=== PATIENT | female | born 1985 | race Two or more races ===

== ENCOUNTER 2020-06-11 21:54 | Inpatient (IN) | payer SELFPAY ==
[~2020-06-11] VITALS: Ht 160 cm; Wt 88.3 kg
[2020-06-11 23:41] LABS: Urine Bacteria NONE SEEN /hpf (None Seen); Urine Blood Negative /uL (Negative); Urine Mucus FEW (None Seen); Urine Specific Gravity 1.018 (1.001-1.035); Urine WBC 10 /hpf (0 - 5)
[2020-06-12 00:13] LABS: Basophils # (auto) 0.1 10 ^3/uL (0-0.2); Basophils % (auto) 0.6 % (0.0-2.0); Eosinophils # (auto) 0.2 10 ^3/uL (0-0.8); Hemoglobin 12.3 g/dL (12.2-16.2); Monocytes # (auto) 0.5 10 ^3/uL (0-1.3); White Blood Cell 9.3 10^3/uL (4.4-10.8)
[2020-06-12 00:15] LABS: Eosinophils % (auto) 2.4 % (0.0-7.0); Hematocrit 39.6 % (36.0-46.0); Lymphocytes # (auto) 2.2 10 ^3/uL (0.4-5.4); Lymphocytes % (auto) 23.5 % (10.0-50.0); Mean Corpuscular Hgb Conc. 31.2 g/dL (32.0-36.0); Mean Corpuscular Volume 83.5 fL (80.0-100.0); Monocytes % (auto) 5.8 % (0.0-12.0); Neutrophils # (auto) 6.3 10 ^3/uL (1.6-8.6); Neutrophils % (auto) 67.7 % (37.0-80.0); Platelet Count (auto) 253 10^3/uL (140-450); Red Blood Cells 4.74 10^6/uL (4.0-5.20); Red Cell Distribution Width 15.7 % (11.8-14.3)
[2020-06-12 00:39] LABS: Albumin 3.5 g/dL (3.4-5.0); BUN/Creatinine Ratio 9.6; Calcium 9.8 mg/dL (8.5-10.1); Magnesium 1.9 mg/dL (1.6-2.6); Potassium 3.5 mmol/L (3.5-5.1)
[2020-06-12 00:42] LABS: Bilirubin, Total 0.3 mg/dL (0.2-1.0); Total Protein 7.1 g/dL (6.4-8.2)
[2020-06-12] MEDS ORDERED: metroNIDAZOLE 500MG/100ML 100 ML IV ONE (01:15)
[2020-06-12] MEDS ORDERED: SODIUM CHLORIDE 0.9% 1,000 ML IV ONE (01:15)
[2020-06-12] MEDS ORDERED: cefTRIAXone 1GM/50ML D5W 50 ML IV ONE (01:15)
[2020-06-12] MEDS ORDERED: MORPHINE SULFATE 4 MG/ML SYR/VIAL IV ONE (02:00)
[2020-06-12] MEDS ORDERED: ONDANSETRON HCL 4 MG/2 ML VIAL IV ONE (02:00)
[2020-06-12 02:19] LABS: INR 1.02 (0.9-1.15); Partial Thromboplastin Time 27.5 sec (23.0-31.2)
[2020-06-12 05:10] VITALS: BP 126/53
[2020-06-12 05:27] VITALS: BP 126/53
[2020-06-12] MEDS: D5W/SOD CHLO 0.9% 1,000 ML IV SCH ×2 (05:31→16:07)
[2020-06-12] MEDS: ONDANSETRON HCL 4 MG/2 ML VIAL IV PRN ×2 (06:25→12:21)
[2020-06-12] MEDS: MORPHINE SULFATE 4 MG/ML SYR/VIAL IV PRN ×4 (06:26→20:33)
[2020-06-12 08:51] VITALS: BP 102/68
[2020-06-12] MEDS: PANTOPRAZOLE 40 MG/10 ML VIAL INJ IV SCH (09:25)
[2020-06-12] MEDS: metroNIDAZOLE 500MG/100ML 100 ML IV SCH ×2 (12:11→18:23)
[2020-06-12] MEDS ORDERED: MEPERIDINE HCL (25 MG/ML) 1ML VIAL ONE (12:19)
[2020-06-12] MEDS ORDERED: PROPOFOL 10 MG/ML 20 ML IV ONE (12:20)
[2020-06-12] MEDS ORDERED: SODIUM CHLORIDE LOCK 10 ML ONE (12:20)
[2020-06-12] MEDS ORDERED: ONDANSETRON HCL 4 MG/2 ML VIAL ONE (12:20)
[2020-06-12] MEDS ORDERED: ROCURONIUM 10MG/ML 10ML VIAL IV ONE (12:20)
[2020-06-12] MEDS ORDERED: MIDAZOLAM HCL 1MG/1ML-2 ML VIAL ONE (12:20)
[2020-06-12] MEDS ORDERED: fentaNYL CITRATE 100 MCG/2 ML VL ONE ×2 (12:20→14:38)
[2020-06-12 12:30] VITALS: BP 102/68
[2020-06-12] MEDS ORDERED: BUPIVACAINE 0.25% INJ 50ML VIAL ONE (13:16)
[2020-06-12] MEDS ORDERED: LIDOCAINE 1% HCL (LOCAL ANESTH.) INJ 20ML MDV ONE (13:16)
[2020-06-12] MEDS ORDERED: SUCCINYLCHOLINE CHLORIDE 20 MG/ML 10ML VIAL IV ONE (13:47)
[2020-06-12] MEDS ORDERED: ceFAZolin 1GM/50ML 50 ML IV ONE (13:55)
[2020-06-12] MEDS ORDERED: GLYCOPYRROLATE 0.2 MG/ML 1ML VIAL ONE (14:21)
[2020-06-12] MEDS ORDERED: NEOSTIGMINE 1 MG/ML INJ (10mg/10ML VIAL) ONE (14:21)
[2020-06-12] MEDS ORDERED: DexAMETHasone SOD PHOS 10MG/1ML VIAL INJ ONE (14:34)
[2020-06-12] MEDS ORDERED: KETOROLAC TROMETH 30 MG/ML 1ML VIAL IV ONE (15:15)
[2020-06-12] MEDS ORDERED: MORPHINE SULFATE 4 MG/ML SYR/VIAL IV PRN (15:15)
[2020-06-12] MEDS ORDERED: HYDROmorphone HCL 2 MG/ML VL IV PRN (15:15)
[2020-06-12] MEDS ORDERED: METOCLOPRAMIDE HCL 5MG/ml INJ 2ml VIAL IV PRN (15:15)
[2020-06-12 16:11] VITALS: BP 122/76
[2020-06-12 21:48] VITALS: BP 104/70
[2020-06-13] MEDS: MORPHINE SULFATE 4 MG/ML SYR/VIAL IV PRN ×5 (01:01→19:41)
[2020-06-13] MEDS: cefTRIAXone 1GM/50ML D5W 50 ML IV SCH (02:06)
[2020-06-13] MEDS: metroNIDAZOLE 500MG/100ML 100 ML IV SCH ×3 (02:56→18:40)
[2020-06-13 05:24] VITALS: BP 110/59
[2020-06-13 05:57] LABS: Basophils # (auto) 0 10 ^3/uL (0-0.2); Basophils % (auto) 0.1 % (0.0-2.0); Eosinophils # (auto) 0 10 ^3/uL (0-0.8); Hematocrit 37.9 % (36.0-46.0); Hemoglobin 12.3 g/dL (12.2-16.2); Lymphocytes # (auto) 0.9 10 ^3/uL (0.4-5.4); Lymphocytes % (auto) 9.2 % (10.0-50.0); Mean Corpuscular Hemoglobin 27.3 pg (28.0-32.0); Mean Corpuscular Hgb Conc. 32.5 g/dL (32.0-36.0); Mean Corpuscular Volume 83.9 fL (80.0-100.0); Monocytes # (auto) 0.3 10 ^3/uL (0-1.3); Monocytes % (auto) 3.5 % (0.0-12.0); Neutrophils # (auto) 8.5 10 ^3/uL (1.6-8.6); Neutrophils % (auto) 87.2 % (37.0-80.0); Platelet Count (auto) 297 10^3/uL (140-450); Red Blood Cells 4.52 10^6/uL (4.0-5.20); Red Cell Distribution Width 15.5 % (11.8-14.3); White Blood Cell 9.7 10^3/uL (4.4-10.8)
[2020-06-13 06:11] LABS: Potassium 3.9 mmol/L (3.5-5.1)
[2020-06-13 06:15] LABS: Albumin 3.1 g/dL (3.4-5.0); Calcium 8.7 mg/dL (8.5-10.1)
[2020-06-13 06:18] LABS: Bilirubin, Total 0.2 mg/dL (0.2-1.0); Total Protein 6.8 g/dL (6.4-8.2)
[2020-06-13 08:49] VITALS: BP 110/69
[2020-06-13] MEDS: PANTOPRAZOLE 40 MG/10 ML VIAL INJ IV SCH (09:15)
[2020-06-13 13:00] VITALS: BP 109/62
[2020-06-13 16:58] VITALS: BP 105/77
[2020-06-13] MEDS: D5W/SOD CHLO 0.9% 1,000 ML IV SCH (18:40)
[2020-06-13 22:00] VITALS: BP 120/79
[2020-06-14] MEDS: cefTRIAXone 1GM/50ML D5W 50 ML IV SCH (02:05)
[2020-06-14] MEDS: MORPHINE SULFATE 4 MG/ML SYR/VIAL IV PRN ×2 (02:05→08:24)
[2020-06-14] MEDS: metroNIDAZOLE 500MG/100ML 100 ML IV SCH ×2 (03:04→08:25)
[2020-06-14 05:00] VITALS: BP 110/67
[2020-06-14 08:00] VITALS: BP 121/70
[2020-06-14] MEDS: PANTOPRAZOLE 40 MG/10 ML VIAL INJ IV SCH (08:25)
[2020-06-14 09:08] VITALS: BP 121/70
[2020-06-14 11:13] VITALS: BP 121/71
== END 2020-06-14 12:34 | disposition home or self-care (01) | DRG 340 ==
LOC: ER 21:54 → OVERFLOW 21:55 → CENTRAL 06-12 05:07
PROVIDERS: ADMIT Nurse Practitioner; ATTEND Family Medicine
PROC: 0DTJ4ZZ Resection of Appendix, Percutaneous Endoscopic Approach (ICD-10-PCS; principal; 2020-06-12 13:57)
DX: K35.33 Acute appendicitis with perforation, localized peritonitis, and gangrene, with abscess (principal); Z20.828 Contact with and (suspected) exposure to other viral communicable diseases
CPT/HCPCS: 36415; 74176; 80053; 81001; 81025; 82150; 83690; 83735; 84702; 85025; 85610; 85730; 86850; 86900; 86901; 87426; 96365; 96367; 96375; C9113; G0378; J0330; J0690; J0696; J1100; J2001; J2250; J2405; J2704; J3490; J7042

== ENCOUNTER 2020-11-19 12:41 | Inpatient (IN) | payer BC, OTHER ==
[~2020-11-19] VITALS: Ht 160 cm; Wt 74.3 kg
[2020-11-19 13:13] LABS: Basophils # (auto) 0 10 ^3/uL (0-0.2); Basophils % (auto) 0.6 % (0.0-2.0); Eosinophils # (auto) 0.1 10 ^3/uL (0-0.8); Eosinophils % (auto) 1.9 % (0.0-7.0); Hemoglobin 13.7 g/dL (12.2-16.2); Lymphocytes # (auto) 2.2 10 ^3/uL (0.4-5.4); Lymphocytes % (auto) 28.4 % (10.0-50.0); Mean Corpuscular Hemoglobin 28.7 pg (28.0-32.0); Mean Corpuscular Hgb Conc. 34.1 g/dL (32.0-36.0); Mean Corpuscular Volume 84.1 fL (80.0-100.0); Monocytes # (auto) 0.4 10 ^3/uL (0-1.3); Monocytes % (auto) 5.1 % (0.0-12.0); Neutrophils # (auto) 4.9 10 ^3/uL (1.6-8.6); Nucleated Red Blood Cells % 0.1 %; Platelet Count (auto) 279 10^3/uL (140-450); Red Blood Cells 4.76 10^6/uL (4.0-5.20); Red Cell Distribution Width 14.7 % (11.8-14.3); White Blood Cell 7.6 10^3/uL (4.4-10.8)
[2020-11-19 13:20] LABS: Urine Bacteria FEW /hpf (None Seen); Urine Blood Negative /uL (Negative); Urine Specific Gravity 1.002 (1.001-1.035); Urine WBC 3 /hpf (0 - 5)
[2020-11-19 13:30] LABS: Albumin 3.8 g/dL (3.4-5.0); Potassium 3.2 mmol/L (3.5-5.1)
[2020-11-19 13:34] LABS: BUN/Creatinine Ratio 10.6; Bilirubin, Total 0.3 mg/dL (0.2-1.0); Total Protein 7.8 g/dL (6.4-8.2)
[2020-11-19] MEDS ORDERED: SODIUM CHLORIDE 0.9% 1,000 ML IVB ONE (14:15)
[2020-11-19 15:25] LABS: INR 1.02 (0.9-1.15); Partial Thromboplastin Time 29.5 sec (23.0-31.2)
[2020-11-19] MEDS ORDERED: MORPHINE SULF INJ 2 MG/ML SYRINGE 1ML IV PRN ×2 (17:30→17:45)
[2020-11-19] MEDS ORDERED: NITROGLYCERIN 0.4 MG SL TAB SL PRN ×2 (17:30→17:45)
[2020-11-19] MEDS ORDERED: ALUM & MAG HYDROX-SIMETH LIQ(MAALOX) 30 ML PO PRN (17:45)
[2020-11-19] MEDS ORDERED: HYDROcodone-ACET 5/325MG TAB PO PRN (17:45)
[2020-11-19] MEDS ORDERED: DOCUSATE SOD 100 MG CAP PO PRN (17:45)
[2020-11-19] MEDS ORDERED: LORazepam 0.5 MG TAB PO PRN (17:45)
[2020-11-19] MEDS ORDERED: PANTOPRAZOLE 40 MG/10 ML VIAL INJ IV ONE (17:45)
[2020-11-19] MEDS ORDERED: cefTRIAXone 1GM/50ML D5W 50 ML IV ONE (17:45)
[2020-11-19] MEDS ORDERED: metroNIDAZOLE 500MG/100ML 100 ML IV ONE (17:45)
[2020-11-19] MEDS ORDERED: SODIUM CHLORIDE 0.9% 1,000 ML IV SCH (17:45)
[2020-11-19] MEDS ORDERED: POTASSIUM CHL 20MEQ/100ML 100 ML IV ONE (17:45)
[2020-11-19] MEDS ORDERED: ACETAMINOPHEN 325 MG TAB PO PRN (17:45)
[2020-11-19] MEDS ORDERED: POTASSIUM EFFERVESENT TAB 25 MEQ PO ONE (18:30)
[2020-11-19] MEDS: ONDANSETRON HCL 4 MG/2 ML VIAL IV PRN (18:51)
[2020-11-19] MEDS: MORPHINE SULF INJ 2 MG/ML SYRINGE 1ML IV PRN (18:51)
[2020-11-19 19:06] LABS: Cholesterol 172 mg/dL (< 200); HDL Cholesterol 56 mg/dL (40-59); LDL Cholesterol 105 mg/dL (< 100); Triglycerides 93 mg/dL (< 150)
[2020-11-20] MEDS: metroNIDAZOLE 500MG/100ML 100 ML IV SCH ×3 (00:50→15:47)
[2020-11-20 05:00] VITALS: BP 94/50
[2020-11-20] MEDS: MORPHINE SULF INJ 2 MG/ML SYRINGE 1ML IV PRN ×2 (05:29→21:29)
[2020-11-20 09:00] VITALS: BP 108/56
[2020-11-20 09:16] LABS: Alcohol, Urine < 3.0 mg/dL (0-10); Amphetamine Screen, Urine POSITIVE (NEGATIVE); Barbiturate Scree,Urine NEGATIVE (NEGATIVE); Benzodiazephine Screen, Urine NEGATIVE (NEGATIVE); Cannabinoid Screen, Urine NEGATIVE (NEGATIVE); Cocaine Screen, Urine NEGATIVE (NEGATIVE); Phencyclidine Screen, Urine NEGATIVE (NEGATIVE)
[2020-11-20 09:24] LABS: Opiate Scree,Urine NEGATIVE (NEGATIVE)
[2020-11-20] MEDS: cefTRIAXone 1GM/50ML D5W 50 ML IV SCH (09:25)
[2020-11-20] MEDS ORDERED: PANTOPRAZOLE 40 MG/10 ML VIAL INJ IV SCH (10:00)
[2020-11-20] MEDS ORDERED: GOLYTELY 4L KIT PO ONE (11:45)
[2020-11-20 13:00] VITALS: BP 92/58
[2020-11-20] MEDS: LACTATED RINGER'S 1,000 ML IV SCH ×2 (13:35→18:25)
[2020-11-20] MEDS: ONDANSETRON HCL 4 MG/2 ML VIAL IV PRN (15:48)
[2020-11-20 17:00] VITALS: BP 112/72
[2020-11-20 22:07] VITALS: BP 108/73
[2020-11-21] MEDS: LACTATED RINGER'S 1,000 ML IV SCH ×3 (00:52→20:41)
[2020-11-21 05:33] VITALS: BP 94/60
[2020-11-21] MEDS: metroNIDAZOLE 500MG/100ML 100 ML IV SCH ×3 (06:20→21:44)
[2020-11-21] MEDS: cefTRIAXone 1GM/50ML D5W 50 ML IV SCH ×2 (06:28→09:02)
[2020-11-21 07:04] LABS: Basophils # (auto) 0.1 10 ^3/uL (0-0.2); Basophils % (auto) 1.2 % (0.0-2.0); Eosinophils # (auto) 0.2 10 ^3/uL (0-0.8); Hematocrit 33.5 % (36.0-46.0); Hemoglobin 11.2 g/dL (12.2-16.2); Lymphocytes # (auto) 1.4 10 ^3/uL (0.4-5.4); Lymphocytes % (auto) 31.3 % (10.0-50.0); Mean Corpuscular Hemoglobin 28.2 pg (28.0-32.0); Mean Corpuscular Hgb Conc. 33.4 g/dL (32.0-36.0); Mean Corpuscular Volume 84.3 fL (80.0-100.0); Monocytes # (auto) 0.3 10 ^3/uL (0-1.3); Monocytes % (auto) 5.8 % (0.0-12.0); Neutrophils # (auto) 2.6 10 ^3/uL (1.6-8.6); Neutrophils % (auto) 57.7 % (37.0-80.0); Nucleated Red Blood Cells % 0.1 %; Platelet Count (auto) 214 10^3/uL (140-450); Red Blood Cells 3.97 10^6/uL (4.0-5.20); Red Cell Distribution Width 15.2 % (11.8-14.3); White Blood Cell 4.5 10^3/uL (4.4-10.8)
[2020-11-21 09:00] VITALS: BP 104/52
[2020-11-21] MEDS ORDERED: LIDOCAINE VISCOUS 2% 15ML UD ONE (10:45)
[2020-11-21] MEDS ORDERED: MEPERIDINE HCL (25 MG/ML) 1ML VIAL ONE (10:50)
[2020-11-21] MEDS ORDERED: MIDAZOLAM HCL 1MG/1ML-2 ML VIAL ONE (10:51)
[2020-11-21] MEDS ORDERED: DexAMETHasone SOD PHOS 10MG/1ML VIAL INJ ONE (11:01)
[2020-11-21] MEDS ORDERED: PROPOFOL 10 MG/ML 20 ML IV ONE (11:07)
[2020-11-21] MEDS ORDERED: ONDANSETRON HCL 4 MG/2 ML VIAL IV PRN (11:15)
[2020-11-21] MEDS ORDERED: MORPHINE SULFATE 4 MG/ML SYR/VIAL IV PRN (11:15)
[2020-11-21] MEDS ORDERED: ePHEDrine SULFATE 50 MG/ML AMP IV PRN (11:15)
[2020-11-21] MEDS ORDERED: HYDROmorphone HCL 2 MG/ML VL IV PRN (11:15)
[2020-11-21] MEDS ORDERED: MIDAZOLAM HCL 1MG/1ML-2 ML VIAL IV PRN (11:15)
[2020-11-21] MEDS ORDERED: LABETALOL HCL 5 MG/ML 4ML SYRINGE IV PRN (11:15)
[2020-11-21 13:00] VITALS: BP 108/62
[2020-11-21 17:00] VITALS: BP 107/56
[2020-11-21] MEDS: MORPHINE SULF INJ 2 MG/ML SYRINGE 1ML IV PRN (20:38)
[2020-11-21 22:00] VITALS: BP 103/54
[2020-11-22] MEDS: LACTATED RINGER'S 1,000 ML IV SCH ×2 (04:57→10:10)
[2020-11-22 05:00] VITALS: BP 111/57
[2020-11-22] MEDS: metroNIDAZOLE 500MG/100ML 100 ML IV SCH (06:06)
[2020-11-22] MEDS: cefTRIAXone 1GM/50ML D5W 50 ML IV SCH (08:43)
[2020-11-22 09:00] VITALS: BP 107/63
== END 2020-11-22 12:35 | disposition home or self-care (01) | DRG 394 ==
LOC: ER 12:41 → TELE 12:42 → TELE-CENTR 11-20 04:39
PROVIDERS: ADMIT Hospitalist; ATTEND Family Medicine
PROC: 0DJD8ZZ Inspection of Lower Intestinal Tract, Via Natural or Artificial Opening Endoscopic (ICD-10-PCS; principal; 2020-11-21 10:48)
PROC: 0DJ08ZZ Inspection of Upper Intestinal Tract, Via Natural or Artificial Opening Endoscopic (ICD-10-PCS; 2020-11-21 10:48)
DX: K64.8 Other hemorrhoids (principal); E87.1 Hypo-osmolality and hyponatremia; N17.9 Acute kidney failure, unspecified; N39.0 Urinary tract infection, site not specified; E78.5 Hyperlipidemia, unspecified; E86.0 Dehydration; E87.6 Hypokalemia; F17.210 Nicotine dependence, cigarettes, uncomplicated; K52.9 Noninfective gastroenteritis and colitis, unspecified; N18.2 Chronic kidney disease, stage 2 (mild); Z20.822 Contact with and (suspected) exposure to COVID-19; Z80.1 Family history of malignant neoplasm of trachea, bronchus and lung; Z80.3 Family history of malignant neoplasm of breast; Z82.49 Family history of ischemic heart disease and other diseases of the circulatory system; Z90.49 Acquired absence of other specified parts of digestive tract; K59.04 Chronic idiopathic constipation; F15.90 Other stimulant use, unspecified, uncomplicated
CPT/HCPCS: 36415; 70450; 71046; 74176; 80053; 80061; 80307; 81001; 82962; 83036; 83735; 84484; 84702; 85025; 85610; 85730; 86850; 86900; 86901; 87040; 87086; 87426; 93005; 93306; 96361; 96365; 96375; C9113; G0378; J0696; J1100; J2250; J2405; J2704; J3490

== ENCOUNTER 2021-03-09 19:29 | Emergency (ER) | payer BC ==
[~2021-03-09] VITALS: Ht 160 cm; Wt 70.3 kg
[2021-03-09 20:16] LABS: Basophils # (auto) 0.1 10 ^3/uL (0-0.2); Basophils % (auto) 0.9 % (0.0-2.0); Eosinophils # (auto) 0.2 10 ^3/uL (0-0.8); Eosinophils % (auto) 2.4 % (0.0-7.0); Hematocrit 35.1 % (36.0-46.0); Hemoglobin 11.6 g/dL (12.2-16.2); Lymphocytes # (auto) 2.7 10 ^3/uL (0.4-5.4); Lymphocytes % (auto) 34.1 % (10.0-50.0); Mean Corpuscular Hemoglobin 27.4 pg (28.0-32.0); Mean Corpuscular Hgb Conc. 32.9 g/dL (32.0-36.0); Mean Corpuscular Volume 83.1 fL (80.0-100.0); Monocytes # (auto) 0.4 10 ^3/uL (0-1.3); Neutrophils # (auto) 4.5 10 ^3/uL (1.6-8.6); Neutrophils % (auto) 57.6 % (37.0-80.0); Nucleated Red Blood Cells % 0.1 %; Red Blood Cells 4.23 10^6/uL (4.0-5.20); Red Cell Distribution Width 15.2 % (11.8-14.3); White Blood Cell 7.9 10^3/uL (4.4-10.8)
[2021-03-09 20:20] LABS: Urine Bacteria NONE SEEN /hpf (None Seen); Urine Blood 3+ /uL (Negative); Urine Specific Gravity 1.016 (1.001-1.035); Urine WBC <1 /hpf (0 - 5)
[2021-03-09 20:39] LABS: Albumin 3.4 g/dL (3.4-5.0); Calcium 8.5 mg/dL (8.5-10.1); Potassium 3.8 mmol/L (3.5-5.1)
[2021-03-09 20:44] LABS: BUN/Creatinine Ratio 7.1; Bilirubin, Total 0.2 mg/dL (0.2-1.0)
[2021-03-09] MEDS ORDERED: SODIUM CHLORIDE 0.9% 1,000 ML IV ONE (22:30)
[2021-03-09] MEDS ORDERED: HYDROCORTISONE ACET 25 MG RECTAL SUPP PR ONE (22:45)
[2021-03-09 23:15] VITALS: BP 125/74
[2021-03-10] MEDS ORDERED: ONDANSETRON ODT 4 MG TAB PO ONE (00:15)
== END 2021-03-10 00:39 | disposition home or self-care (01) ==
LOC: ER 19:30
DX: K64.8 Other hemorrhoids (principal); F17.210 Nicotine dependence, cigarettes, uncomplicated; Z90.49 Acquired absence of other specified parts of digestive tract
CPT/HCPCS: 36415; 74176; 80053; 81001; 83690; 84702; 85025; 96360; 99284; J7030; Q0162

== ENCOUNTER 2021-12-28 11:55 | Inpatient (IN) | payer BC ==
[~2021-12-28] VITALS: Ht 160 cm; Wt 81.5 kg
[2021-12-28] MEDS ORDERED: MORPHINE SULFATE 4 MG/ML SYR/VIAL IV ONE (12:15)
[2021-12-28] MEDS ORDERED: ONDANSETRON HCL 4 MG/2 ML VIAL IV ONE (12:15)
[2021-12-28] MEDS ORDERED: SODIUM CHLORIDE 0.9% 500 ML IVB ONE (12:15)
[2021-12-28 13:25] LABS: Basophils # (auto) 0.1 10 ^3/uL (0-0.2); Eosinophils # (auto) 0.2 10 ^3/uL (0-0.8); Eosinophils % (auto) 4.5 % (0.0-7.0); Hematocrit 35.3 % (36.0-46.0); Hemoglobin 11.7 g/dL (12.2-16.2); Lymphocytes # (auto) 1.7 10 ^3/uL (0.4-5.4); Lymphocytes % (auto) 34.1 % (10.0-50.0); Mean Corpuscular Hemoglobin 27.6 pg (28.0-32.0); Mean Corpuscular Hgb Conc. 33.1 g/dL (32.0-36.0); Mean Corpuscular Volume 83.3 fL (80.0-100.0); Monocytes # (auto) 0.2 10 ^3/uL (0-1.3); Monocytes % (auto) 4.7 % (0.0-12.0); Neutrophils # (auto) 2.8 10 ^3/uL (1.6-8.6); Neutrophils % (auto) 54.7 % (37.0-80.0); Nucleated Red Blood Cells % 0.1 %; Red Blood Cells 4.24 10^6/uL (4.0-5.20); Red Cell Distribution Width 15.1 % (11.8-14.3); White Blood Cell 5.1 10^3/uL (4.4-10.8)
[2021-12-28 13:37] LABS: Amylase 64 U/L (25-115); Lipase 99 U/L (73-393)
[2021-12-28 13:38] LABS: Albumin 3.3 g/dL (3.4-5.0); Calcium 8.8 mg/dL (8.5-10.1); Potassium 4.2 mmol/L (3.5-5.1)
[2021-12-28 13:43] LABS: BUN/Creatinine Ratio 10.8; Bilirubin, Total 0.2 mg/dL (0.2-1.0); Total Protein 6.9 g/dL (6.4-8.2)
[2021-12-28] MEDS ORDERED: PANTOPRAZOLE 40 MG/10 ML VIAL INJ IV ONE (14:15)
[2021-12-28] MEDS ORDERED: ONDANSETRON HCL 4 MG/2 ML VIAL IV PRN (15:00)
[2021-12-28] MEDS ORDERED: GOLYTELY 4L KIT PO ONE (16:00)
[2021-12-28 16:25] LABS: INR 0.99 (0.9-1.15)
[2021-12-28] MEDS: SODIUM CHLORIDE 0.9% 1,000 ML IV SCH (16:47)
[2021-12-28] MEDS: MORPHINE SULFATE 4 MG/ML SYR/VIAL IV PRN (18:00)
[2021-12-28] MEDS ORDERED: NICOTINE 14 MG/24HR TOPICAL PATCH TD ONE (20:00)
[2021-12-29] MEDS: SODIUM CHLORIDE 0.9% 1,000 ML IV SCH ×2 (01:00→11:00)
[2021-12-29 05:00] VITALS: BP 112/72
[2021-12-29 05:23] LABS: Basophils # (auto) 0.1 10 ^3/uL (0-0.2); Basophils % (auto) 1.2 % (0.0-2.0); Eosinophils # (auto) 0.2 10 ^3/uL (0-0.8); Eosinophils % (auto) 3.7 % (0.0-7.0); Hematocrit 32.4 % (36.0-46.0); Hemoglobin 10.8 g/dL (12.2-16.2); Lymphocytes # (auto) 1.7 10 ^3/uL (0.4-5.4); Lymphocytes % (auto) 33.9 % (10.0-50.0); Mean Corpuscular Hemoglobin 27.9 pg (28.0-32.0); Mean Corpuscular Hgb Conc. 33.3 g/dL (32.0-36.0); Mean Corpuscular Volume 83.7 fL (80.0-100.0); Monocytes # (auto) 0.3 10 ^3/uL (0-1.3); Monocytes % (auto) 6.2 % (0.0-12.0); Neutrophils # (auto) 2.7 10 ^3/uL (1.6-8.6); Red Blood Cells 3.87 10^6/uL (4.0-5.20); Red Cell Distribution Width 15.4 % (11.8-14.3)
[2021-12-29] MEDS: MORPHINE SULFATE 4 MG/ML SYR/VIAL IV PRN ×4 (05:24→21:32)
[2021-12-29 05:44] LABS: Albumin 2.8 g/dL (3.4-5.0); Calcium 8.2 mg/dL (8.5-10.1)
[2021-12-29 05:46] LABS: BUN/Creatinine Ratio 8.6
[2021-12-29 05:48] LABS: Bilirubin, Total 0.4 mg/dL (0.2-1.0); Total Protein 5.6 g/dL (6.4-8.2)
[2021-12-29] MEDS: NICOTINE 14 MG/24HR TOPICAL PATCH TD SCH (09:01)
[2021-12-29] MEDS: PANTOPRAZOLE 40 MG/10 ML VIAL INJ IV SCH (09:01)
[2021-12-29 13:11] LABS: Urine WBC None Seen /hpf (0 - 5)
[2021-12-29 13:17] LABS: Urine Bacteria NONE SEEN /hpf (None Seen); Urine Blood Negative /uL (Negative); Urine Specific Gravity 1.011 (1.001-1.035)
[2021-12-29] MEDS ORDERED: fentaNYL CITRATE 100 MCG/2 ML VL ONE (13:21)
[2021-12-29] MEDS ORDERED: MEPERIDINE HCL (25 MG/ML) 1ML VIAL ONE (13:21)
[2021-12-29] MEDS ORDERED: MIDAZOLAM HCL 2MG/2ML 2ml VIAL (1mg/ml) ONE (13:21)
[2021-12-29] MEDS ORDERED: DexAMETHasone SOD PHOS 10MG/1ML VIAL INJ ONE (13:29)
[2021-12-29] MEDS ORDERED: PROPOFOL 10 MG/ML 20 ML IV ONE (13:29)
[2021-12-29 13:32] LABS: Alcohol, Urine < 3.0 mg/dL (0-10); Amphetamine Screen, Urine NEGATIVE (NEGATIVE); Barbiturate Scree,Urine NEGATIVE (NEGATIVE); Benzodiazephine Screen, Urine NEGATIVE (NEGATIVE); Cannabinoid Screen, Urine POSITIVE (NEGATIVE); Cocaine Screen, Urine NEGATIVE (NEGATIVE); Opiate Scree,Urine POSITIVE (NEGATIVE); Phencyclidine Screen, Urine NEGATIVE (NEGATIVE)
[2021-12-29] MEDS ORDERED: HYDROmorphone HCL 2 MG/ML VL IV PRN (13:45)
[2021-12-29] MEDS ORDERED: MORPHINE SULFATE 4 MG/ML SYR/VIAL IV PRN (13:45)
[2021-12-29] MEDS ORDERED: ePHEDrine SULFATE 50 MG/ML AMP IV PRN (13:45)
[2021-12-29] MEDS ORDERED: MIDAZOLAM HCL 2MG/2ML 2ml VIAL (1mg/ml) IV PRN (13:45)
[2021-12-29] MEDS ORDERED: LABETALOL HCL 5 MG/ML 4ML SYRINGE IV PRN (13:45)
[2021-12-29] MEDS ORDERED: ONDANSETRON HCL 4 MG/2 ML VIAL IV PRN (13:45)
[2021-12-29] MEDS ORDERED: HYDROCORTISONE ACET 25 MG RECTAL SUPP PR PRN (14:00)
[2021-12-29 17:00] VITALS: BP 100/60
[2021-12-29 22:00] VITALS: BP 104/61
[2021-12-30] MEDS: SODIUM CHLORIDE 0.9% 1,000 ML IV SCH ×3 (04:41→09:14)
[2021-12-30 05:00] VITALS: BP 107/65
[2021-12-30] MEDS: MORPHINE SULFATE 4 MG/ML SYR/VIAL IV PRN ×2 (05:00→09:15)
[2021-12-30 05:43] LABS: Basophils # (auto) 0 10 ^3/uL (0-0.2); Basophils % (auto) 0.1 % (0.0-2.0); Eosinophils # (auto) 0 10 ^3/uL (0-0.8); Hematocrit 34.3 % (36.0-46.0); Hemoglobin 11.7 g/dL (12.2-16.2); Lymphocytes # (auto) 0.6 10 ^3/uL (0.4-5.4); Lymphocytes % (auto) 5.8 % (10.0-50.0); Mean Corpuscular Hemoglobin 28.4 pg (28.0-32.0); Mean Corpuscular Hgb Conc. 34.1 g/dL (32.0-36.0); Mean Corpuscular Volume 83.4 fL (80.0-100.0); Monocytes # (auto) 0.3 10 ^3/uL (0-1.3); Monocytes % (auto) 3.3 % (0.0-12.0); Neutrophils # (auto) 9.5 10 ^3/uL (1.6-8.6); Neutrophils % (auto) 90.8 % (37.0-80.0); Red Blood Cells 4.12 10^6/uL (4.0-5.20); Red Cell Distribution Width 14.9 % (11.8-14.3); White Blood Cell 10.5 10^3/uL (4.4-10.8)
[2021-12-30 05:54] LABS: Calcium 8.7 mg/dL (8.5-10.1); Magnesium 2.4 mg/dL (1.6-2.6); Potassium 3.5 mmol/L (3.5-5.1)
[2021-12-30 05:58] LABS: BUN/Creatinine Ratio 5.8
[2021-12-30 08:00] VITALS: BP 117/64
[2021-12-30] MEDS: PANTOPRAZOLE 40 MG/10 ML VIAL INJ IV SCH (09:14)
[2021-12-30] MEDS: NICOTINE 14 MG/24HR TOPICAL PATCH TD SCH (09:15)
[2021-12-30 12:00] VITALS: BP 111/72
[2021-12-30] MEDS ORDERED: POLYETHYLENE GLYCOL 17 GM PWDR PO ONE (15:30)
[2021-12-30 16:00] VITALS: BP 135/65
[2021-12-30] MEDS: ACETAMINOPHEN 325 MG TAB PO PRN (18:26)
[2021-12-30 22:00] VITALS: BP 106/69
[2021-12-31 05:00] VITALS: BP 120/76
[2021-12-31 09:00] VITALS: BP 116/81
[2021-12-31] MEDS: NICOTINE 14 MG/24HR TOPICAL PATCH TD SCH (10:00)
[2021-12-31] MEDS: PANTOPRAZOLE 40 MG/10 ML VIAL INJ IV SCH (10:04)
[2021-12-31] MEDS: ACETAMINOPHEN 325 MG TAB PO PRN (10:06)
[2021-12-31 13:00] VITALS: BP 117/69
[2021-12-31] MEDS: SODIUM CHLORIDE 0.9% 1,000 ML IV SCH (13:00)
== END 2021-12-31 17:20 | disposition home or self-care (01) | DRG 394 ==
LOC: ER 11:55 → OVERFLOW 14:47 → WEST WING 20:36
PROVIDERS: ADMIT Registered Nurse; ATTEND Internal Medicine
PROC: 0DBL8ZX Excision of Transverse Colon, Via Natural or Artificial Opening Endoscopic, Diagnostic (ICD-10-PCS; principal; 2021-12-29 13:24)
DX: K63.5 Polyp of colon (principal); K92.2 Gastrointestinal hemorrhage, unspecified; K42.9 Umbilical hernia without obstruction or gangrene; K64.8 Other hemorrhoids; F12.90 Cannabis use, unspecified, uncomplicated; Z20.822 Contact with and (suspected) exposure to COVID-19; F17.210 Nicotine dependence, cigarettes, uncomplicated; Z71.6 Tobacco abuse counseling; Z80.3 Family history of malignant neoplasm of breast; Z90.49 Acquired absence of other specified parts of digestive tract; Z80.1 Family history of malignant neoplasm of trachea, bronchus and lung
CPT/HCPCS: 36415; 74176; 80048; 80053; 80307; 81001; 82150; 83690; 83735; 84702; 85025; 85610; 96361; 96374; 96375; 96376; C9113; G0378; J1100; J2250; J2405; J2704

== ENCOUNTER 2022-07-13 16:09 | Emergency (ER) | payer SELFPAY ==
[~2022-07-13] VITALS: Ht 160 cm; Wt 77.2 kg
[2022-07-13] MEDS ORDERED: MECLIZINE HCL 25 MG TAB PO ONE (16:30)
[2022-07-13 16:50] LABS: Alcohol, Urine < 3.0 mg/dL (0-10); Amphetamine Screen, Urine NEGATIVE (NEGATIVE); Barbiturate Scree,Urine NEGATIVE (NEGATIVE); Benzodiazephine Screen, Urine NEGATIVE (NEGATIVE); Cannabinoid Screen, Urine NEGATIVE (NEGATIVE); Cocaine Screen, Urine NEGATIVE (NEGATIVE); Opiate Scree,Urine NEGATIVE (NEGATIVE); Phencyclidine Screen, Urine NEGATIVE (NEGATIVE)
[2022-07-13 17:00] LABS: Basophils # (auto) 0.1 10 ^3/uL (0-0.2); Basophils % (auto) 0.9 % (0.0-2.0); Eosinophils # (auto) 0.1 10 ^3/uL (0-0.8); Eosinophils % (auto) 1.3 % (0.0-7.0); Hematocrit 37.2 % (36.0-46.0); Hemoglobin 11.9 g/dL (12.2-16.2); Lymphocytes # (auto) 1.5 10 ^3/uL (0.4-5.4); Lymphocytes % (auto) 20.5 % (10.0-50.0); Mean Corpuscular Hemoglobin 26.7 pg (28.0-32.0); Mean Corpuscular Hgb Conc. 31.9 g/dL (32.0-36.0); Mean Corpuscular Volume 83.6 fL (80.0-100.0); Monocytes # (auto) 0.2 10 ^3/uL (0-1.3); Monocytes % (auto) 3.4 % (0.0-12.0); Neutrophils # (auto) 5.4 10 ^3/uL (1.6-8.6); Neutrophils % (auto) 73.9 % (37.0-80.0); Nucleated Red Blood Cells % 0.1 %; Red Blood Cells 4.45 10^6/uL (4.0-5.20); White Blood Cell 7.3 10^3/uL (4.4-10.8)
[2022-07-13 17:21] LABS: Albumin 3.6 g/dL (3.4-5.0); Calcium 8.8 mg/dL (8.5-10.1); Potassium 3.9 mmol/L (3.5-5.1)
[2022-07-13 17:24] LABS: BUN/Creatinine Ratio 9.3; Bilirubin, Total 0.2 mg/dL (0.2-1.0); Total Protein 6.9 g/dL (6.4-8.2)
[2022-07-13] MEDS ORDERED: MECL12.514 PO (19:04)
[2022-07-13 19:27] VITALS: BP 100/59
== END 2022-07-13 19:30 | disposition home or self-care (01) ==
LOC: ER 16:09
DX: R42 Dizziness and giddiness (principal); F17.210 Nicotine dependence, cigarettes, uncomplicated; F12.10 Cannabis abuse, uncomplicated; Z90.89 Acquired absence of other organs
CPT/HCPCS: 36415; 70450; 80053; 80307; 81025; 85025; 99284; J8597

== ENCOUNTER 2023-02-11 15:32 | Inpatient (IN) | payer SELFPAY ==
[~2023-02-11] VITALS: Ht 160 cm; Wt 77.4 kg
[~2023-02-11 15:32] MED LIST: MECL12.514 PO
[2023-02-11 16:12] LABS: Basophils # (auto) 0.1 10 ^3/uL (0-0.2); Basophils % (auto) 0.9 % (0.0-2.0); Eosinophils # (auto) 0.1 10 ^3/uL (0-0.8); Hematocrit 36.8 % (36.0-46.0); Hemoglobin 12.1 g/dL (12.2-16.2); Lymphocytes # (auto) 2.3 10 ^3/uL (0.4-5.4); Lymphocytes % (auto) 30.2 % (10.0-50.0); Mean Corpuscular Hemoglobin 27.1 pg (28.0-32.0); Mean Corpuscular Hgb Conc. 32.8 g/dL (32.0-36.0); Mean Corpuscular Volume 82.7 fL (80.0-100.0); Monocytes # (auto) 0.4 10 ^3/uL (0-1.3); Monocytes % (auto) 5.2 % (0.0-12.0); Neutrophils # (auto) 4.6 10 ^3/uL (1.6-8.6); Neutrophils % (auto) 61.7 % (37.0-80.0); Nucleated Red Blood Cells % 0.1 %; Red Blood Cells 4.45 10^6/uL (4.0-5.20); Red Cell Distribution Width 15.4 % (11.8-14.3); White Blood Cell 7.5 10^3/uL (4.4-10.8)
[2023-02-11 16:28] LABS: Albumin 3.5 g/dL (3.4-5.0); Calcium 8.7 mg/dL (8.5-10.1); Potassium 4.1 mmol/L (3.5-5.1)
[2023-02-11 16:32] LABS: BUN/Creatinine Ratio 7.8 (10.0-20.0); Bilirubin, Total 0.3 mg/dL (0.2-1.0); Total Protein 7.1 g/dL (6.4-8.2)
[2023-02-11 18:18] LABS: Urine Bacteria NONE SEEN /hpf (None Seen); Urine Blood Negative /uL (Negative); Urine WBC 1 /hpf (0 - 5)
[2023-02-11] MEDS ORDERED: MORPHINE SULFATE 4 MG/ML SYR/VIAL IV ONE ×2 (18:45→21:00)
[2023-02-11] MEDS ORDERED: ONDANSETRON HCL 4 MG/2 ML VIAL IV ONE ×2 (18:45→21:00)
[2023-02-11] MEDS ORDERED: diphenhdrAMINE HCL 50 MG/1 ML VL IV ONE (21:00)
[2023-02-11] MEDS ORDERED: ACETAMINOPHEN 325 MG TAB PO PRN (22:30)
[2023-02-11] MEDS ORDERED: MORPHINE SULFATE INJ 2 MG/ml SYRG IV PRN (22:30)
[2023-02-11] MEDS ORDERED: ONDANSETRON HCL 4 MG/2 ML VIAL IV PRN (22:30)
[2023-02-11] MEDS ORDERED: HYDROcodone-ACET 5/325MG TAB PO PRN (22:30)
[2023-02-12] MEDS ORDERED: NITROGLYCERIN 0.4 MG SL TAB SL PRN
[2023-02-12] MEDS ORDERED: MORPHINE SULFATE INJ 2 MG/ml SYRG IV PRN
[2023-02-12 04:15] LABS: Basophils # (auto) 0.1 10 ^3/uL (0-0.2); Basophils % (auto) 1.2 % (0.0-2.0); Eosinophils # (auto) 0.2 10 ^3/uL (0-0.8); Hematocrit 35.1 % (36.0-46.0); Hemoglobin 11.5 g/dL (12.2-16.2); Lymphocytes # (auto) 2.3 10 ^3/uL (0.4-5.4); Mean Corpuscular Hemoglobin 27.2 pg (28.0-32.0); Mean Corpuscular Hgb Conc. 32.6 g/dL (32.0-36.0); Mean Corpuscular Volume 83.4 fL (80.0-100.0); Monocytes # (auto) 0.4 10 ^3/uL (0-1.3); Monocytes % (auto) 5.3 % (0.0-12.0); Neutrophils # (auto) 3.9 10 ^3/uL (1.6-8.6); Neutrophils % (auto) 56.5 % (37.0-80.0); Nucleated Red Blood Cells % 0.2 %; Red Blood Cells 4.21 10^6/uL (4.0-5.20); Red Cell Distribution Width 15.3 % (11.8-14.3); White Blood Cell 6.9 10^3/uL (4.4-10.8)
[2023-02-12 04:26] LABS: Calcium 8.8 mg/dL (8.5-10.1); Potassium 3.6 mmol/L (3.5-5.1)
[2023-02-12 04:29] LABS: Albumin 3.2 g/dL (3.4-5.0); BUN/Creatinine Ratio 12.2 (10.0-20.0)
[2023-02-12 04:31] LABS: Bilirubin, Total 0.3 mg/dL (0.2-1.0); Total Protein 6.9 g/dL (6.4-8.2)
[2023-02-12] MEDS: SOD CHL 0.45% 1,000 ML IV SCH ×2 (08:07→11:50)
[2023-02-12] MEDS ORDERED: FAMOTIDINE (10MG/ML) 2ML VL IV SCH (10:00)
[2023-02-12 16:07] VITALS: BP 92/59
== END 2023-02-12 19:10 | disposition home or self-care (01) | DRG 379 ==
LOC: ER 15:32 → OVERFLOW 23:55
PROVIDERS: ADMIT Nurse Practitioner Family; ATTEND Nurse Practitioner Family
DX: K92.2 Gastrointestinal hemorrhage, unspecified (principal); M54.9 Dorsalgia, unspecified; F17.210 Nicotine dependence, cigarettes, uncomplicated; Z20.822 Contact with and (suspected) exposure to COVID-19; Z87.19 Personal history of other diseases of the digestive system; Z90.49 Acquired absence of other specified parts of digestive tract
CPT/HCPCS: 36415; 74176; 80053; 81001; 83605; 83690; 84702; 85025; 87426; G0378; J2405; J3490